=== PATIENT | female | born 1970 | race Caucasian/White ===

== ENCOUNTER 2016-08-05 11:48 | Emergency (ER) | payer OTHER ==
[~2016-08-05 11:48] MED LIST: COREG3.125 MG PO; COREG6.25 MG PO; COZAAR25 MG PO; LISINOPRIL20 MG PO; NAPROSYN500 MG PO; SYMBICORT INH
[2016-08-05] MEDS ORDERED: TOPAMAX15 MG (12:07)
[2016-08-05] MEDS ORDERED: ALBUTEROL17 GM (12:07)
[2016-08-05 12:13] LABS: URINE SOURCE CLEAN CATCH
[2016-08-05 12:15] LABS: URINE APPEARANCE CLEAR; URINE BILIRUBIN NEG (NEG); URINE BLOOD 3+ (NEG); URINE COLOR YELLOW; URINE GLUCOSE NEG (NORM); URINE KETONE NEG (NEG); URINE LEUKOCYTE ESTERASE NEG (NEG); URINE NITRATE NEG (NEG); URINE PROTEIN NEG (NEG); URINE UROBILINOGEN 0.2 MG/DL (NORM)
[2016-08-05 12:17] LABS: MICRO INDICATED? YES
[2016-08-05 12:28] LABS: CULTURE INDICATED? NO; URINE BACTERIA NEG (NEG); URINE WBC 0-2 /[HPF] (0-5)
== END 2016-08-05 12:45 | disposition home or self-care (01) ==
LOC: SED 11:48
PROVIDERS: Physician Assistant
DX: S39.012A Strain of muscle, fascia and tendon of lower back, initial encounter (principal); R03.0 Elevated blood-pressure reading, without diagnosis of hypertension; F17.210 Nicotine dependence, cigarettes, uncomplicated; G43.909 Migraine, unspecified, not intractable, without status migrainosus; X50.9XXA Other and unspecified overexertion or strenuous movements or postures, initial encounter; Y92.9 Unspecified place or not applicable
CPT/HCPCS: 81003; 99283; J1885